=== PATIENT | female | born 1975 | race Caucasian/White ===

== ENCOUNTER 2017-07-29 05:10 | Day surgery (SDC) | payer BC, OTHER ==
[~2017-07-29] VITALS: Ht 165.1 cm; Wt 79.4 kg
--- NOTE | ~2017-07-29 | O ---
[facility] [place] [address] OPERATIVE REPORT Name: ILANA ASHLEY Room #: 150-3 [facility]..#: [id number] Admission: 07/29/17 Attend Phys: Jj Salomon MD Discharge: Date of : 75 Report #: [id number] THIS REPORT FOR: //name// CC: Fran Salomon DATE OF SERVICE: 07/29/2017 PREOPERATIVE DIAGNOSIS: Left calf hematoma. POSTOPERATIVE DIAGNOSIS: Left calf hematoma. PROCEDURE: Evacuation of left calf hematoma. SURGEON: Jj Salomon MD. ENTRY LEVEL CHEMIST: Saniya Waller PA-C. INDICATIONS FOR ENTRY LEVEL CHEMIST: Throughout the case, retraction and manipulation of the leg was required and this was afforded to me by my physician executive administrative assistant. ANESTHESIA: LMA. COMPLICATIONS: None. SPECIMENS: None. TOURNIQUET TIME: 9 minutes. CONDITION UPON LEAVING THE OPERATING ROOM: Stable. INDICATIONS FOR PROCEDURE: The patient is a 42-year-old female who hit her leg about 4 weeks ago and had swelling and pain in her medial calf. She had an MRI scan showing her to have a hematoma deep to her medial head of her gastroc and after discussion with her and failure of conservative measures, she elected for evacuation of the left calf hematoma. DESCRIPTION OF PROCEDURE: Risks, benefits, alternatives, complications were discussed in detail with the patient including but not limited to risk of anesthesia, risk of damage to nerves, arteries, blood vessels, risk for infection, bleeding, risk for continued calf pain, reaccumulation of hematoma and need for reoperation. Informed consent was obtained from the patient. Left calf was appropriately marked in the preoperative holding area. She was brought to the operating room and placed in supine position on operating room table. LMA anesthesia was induced without complication. Tourniquet was placed on the left thigh. Left lower extremity was prepped and draped in normal sterile [address] [address] OPERATIVE REPORT Name: ILANA ASHLEY Room #: 150-3 [facility]..#: [id number] Admission: 07/29/17 Attend Phys: Jj Salomon MD Discharge: Date of : 75 Report #: [id number] fashion. IV Ancef was given for preoperative antibiotics. Timeout was performed properly identifying the patient and procedure as well as the instrumentation. All in the operating room were in agreement. Left lower extremity was exsanguinated, tourniquet was inflated. Tourniquet time was 9 minutes. A longitudinal incision centered over the medial gastroc head at the level of the musculotendinous junction was made with a 10 blade through the skin. A saphenous vein was identified, dissected and retracted anteriorly. The fascia overlying the gastroc muscles then split longitudinally with a knife and the medial head of the gastroc musculature was split bluntly with Childs elevator. The deep fascia of the muscle was then split longitudinally and upon entering the deeper posterior compartment, there was noted to be a liquefying hematoma that was easily drained and evacuated with a suction. This was thoroughly irrigated with normal saline. The tourniquet was deflated. Hemostasis was obtained with Bovie cautery. The deep fascia was closed with 0 Vicryl, skin was closed with 2-0 Vicryl and 3-0 Monocryl. Steri-Strips, Adaptic, 4 x 4, Webril, Leo wrap and a Cam walker were applied. The patient tolerated this procedure well and went to recovery room under care of anesthesia postoperatively. By: [id number] Jj Salomon MD /gladys
[~2017-07-29 05:10] MED LIST: APAP500 PO; CLONAZEPAM 1 MG1 M1 PO; DIFLUCAN150 MG PO; FLEXERIL; FLEXERIL PO; HYDROCODON-ACE1 EAC7 PO; HYDROCODONE-AP1 EACH PO; IBUPROFEN 600600 M1 PO; LEVAQUIN 500 M500 M2 PO; LINZESS145 MCG PO; MIDODRINE HCL 55 M1; NAPROSYN500 MG PO; NEURONTIN 300300 M1 PO; NORCO 10-325 T1 EACH; NORCO 5-325 TA1 EACH PO; ONDANSETRON HCL4 M2 PO; PERCOCET 5-3251 EACH PO; PREDNISONE 20 M20 M1 PO; PREDNISONE 20 M20 MG PO; PROCTOFOAM-HC 110 GM RC; PROZAC 20 MG20 M1 PO; REMERON15 M1; ROBAFEN AC SYR120 ML PO; ROBAXIN500 MG; ROBAXIN500 MG PO; SAVELLA50 MG PO; TRAZODONE HCL100 MG PO; ULTRAM 50MG TAB50 MG PO; ZOFRAN ODT4 MG PO; ZOFRAN4 MG; ZPAK PO
[2017-07-29 13:40] VITALS: BP 113/78
[2017-07-29 14:58] VITALS: BP 113/78
== END 2017-07-29 16:00 | disposition home or self-care (01) ==
LOC: OR 05:10 → TBA 08:02 → OR 09:01
DX: S80.12XA Contusion of left lower leg, initial encounter (principal); G47.33 Obstructive sleep apnea (adult) (pediatric); F32.89 Other specified depressive episodes; F41.8 Other specified anxiety disorders; F17.210 Nicotine dependence, cigarettes, uncomplicated; Z90.710 Acquired absence of both cervix and uterus; Z98.890 Other specified postprocedural states; Z88.1 Allergy status to other antibiotic agents; X58.XXXA Exposure to other specified factors, initial encounter; Y93.89 Activity, other specified; Y92.89 Other specified places as the place of occurrence of the external cause; Y99.8 Other external cause status
CPT/HCPCS: 50010; 50101; 50386; 56524; 56527; 56528; 57091; 62110; 62900; 70005

== ENCOUNTER 2018-08-02 20:45 | Emergency (ER) | payer BC, OTHER ==
[~2018-08-02] VITALS: Ht 165.1 cm; Wt 69.0 kg
[2018-08-02] MEDS ORDERED: MIDODRINE HCL 55 M1 PO (21:01)
[2018-08-02] MEDS ORDERED: TOPROL XL25 MG PO (21:02)
[2018-08-02] MEDS ORDERED: PREDNISONE 20 M20 MG PO (21:29)
[2018-08-02] MEDS ORDERED: VENTOLIN HFA 1818 GM INH (21:29)
[2018-08-02] MEDS ORDERED: MOBIC7.5 MG PO ×2 (21:35→21:41)
[2018-08-02] MEDS ORDERED: TESSALON PERLE100 MG PO ×2 (21:39→21:42)
== END 2018-08-02 22:00 | disposition home or self-care (01) ==
LOC: ER 20:45
DX: J40 Bronchitis, not specified as acute or chronic (principal); J04.0 Acute laryngitis; F17.210 Nicotine dependence, cigarettes, uncomplicated; G47.30 Sleep apnea, unspecified; F32.9 Major depressive disorder, single episode, unspecified; K58.9 Irritable bowel syndrome, unspecified; Z91.048 Other nonmedicinal substance allergy status; Z88.1 Allergy status to other antibiotic agents; Z90.710 Acquired absence of both cervix and uterus; Z90.49 Acquired absence of other specified parts of digestive tract; Z90.722 Acquired absence of ovaries, bilateral

== ENCOUNTER 2018-08-05 19:06 | Emergency (ER) | payer BC, OTHER ==
[~2018-08-05] VITALS: Ht 165.1 cm; Wt 69.4 kg
--- NOTE | ~2018-08-05 | EKG ---
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
[~2018-08-05 19:06] MED LIST changes: +MIDODRINE HCL 55 M1 PO; +MOBIC7.5 MG PO; +TESSALON PERLE100 MG PO; +TOPROL XL25 MG PO; +VENTOLIN HFA 1818 GM INH
[2018-08-05 19:21] LABS: ABSOLUTE NEUTROPHILS 12.4 thou/uL (1.4-8.2); BASOPHILS 0.6 % (0.0-2.0); EOSINOPHILS 0.1 % (0.0-3.0); HEMATOCRIT 42.4 % (37.0-47.0); HEMOGLOBIN 14.3 gm/dL (12.0-15.0); LYMPHOCYTES 17.4 % (24.0-44.0); MCH 30.6 pg (26.0-34.0); MCHC 33.7 g/dL (28.0-37.0); MCV 90.9 fL (80.0-100.0); MONOCYTES 6.1 % (1.0-8.0); PLATELET COUNT 253 thou/uL (150-400); POLYS 75.8 % (36.0-66.0); RBC 4.67 mil/uL (4.20-5.00); RDW 13.7 % (10.5-14.5); WBC 16.4 thou/uL (4.0-11.0)
[2018-08-05 19:29] LABS: ANION GAP 13 mmol/L (7-16); BUN 16 mg/dL (7-18); CALCIUM 9.5 mg/dL (8.5-10.1); CHLORIDE 106 mmol/L (98-107); CO2 24 mmol/L (21-32); GLUCOSE 110 mg/dL (74-106); POTASSIUM 3.8 mmol/L (3.5-5.1); SODIUM 143 mmol/L (136-145)
[2018-08-05 19:38] LABS: TROPONIN-I <0.06 ng/mL (<0.06)
== END 2018-08-05 23:22 | disposition home or self-care (01) ==
LOC: ER 19:06
PROVIDERS: Emergency Medicine
DX: J06.9 Acute upper respiratory infection, unspecified (principal); M79.622 Pain in left upper arm; F17.210 Nicotine dependence, cigarettes, uncomplicated; I95.1 Orthostatic hypotension; G47.30 Sleep apnea, unspecified; F32.9 Major depressive disorder, single episode, unspecified; K58.9 Irritable bowel syndrome, unspecified; Z90.49 Acquired absence of other specified parts of digestive tract; Z91.048 Other nonmedicinal substance allergy status; Z88.1 Allergy status to other antibiotic agents; Z90.710 Acquired absence of both cervix and uterus; Z90.722 Acquired absence of ovaries, bilateral

== ENCOUNTER 2019-02-17 21:15 | Emergency (ER) | payer BC, OTHER ==
[~2019-02-17] VITALS: Ht 165.1 cm; Wt 63.5 kg
[2019-02-17 21:41] LABS: URINE BILIRUBIN NEGATIVE (Negative); URINE BLOOD NEGATIVE (Negative); URINE CLARITY CLEAR; URINE COLOR YELLOW; URINE GLUCOSE-RANDOM* NEGATIVE (Negative); URINE KETONES NEGATIVE (Negative); URINE LEUKOCYTES-REFLEX NEGATIVE (Negative); URINE NITRITE-REFLEX NEGATIVE (Negative); URINE PROTEIN (DIPSTICK) NEGATIVE (Negative); URINE UROBILINOGEN 0.2 E.U./dl (0.2-1.0)
[2019-02-17 21:54] LABS: ABSOLUTE NEUTROPHILS 3.4 thou/uL (1.4-8.2); BASOPHILS 0.8 % (0.0-2.0); EOSINOPHILS 1.1 % (0.0-3.0); HEMATOCRIT 37.8 % (37.0-47.0); HEMOGLOBIN 12.9 gm/dL (12.0-15.0); MCH 30.5 pg (26.0-34.0); MCHC 34.1 g/dL (28.0-37.0); MCV 89.2 fL (80.0-100.0); PLATELET COUNT 212 thou/uL (150-400); POLYS 47.1 % (36.0-66.0); RBC 4.24 mil/uL (4.20-5.00); RDW 13.8 % (10.5-14.5); WBC 7.3 thou/uL (4.0-11.0)
[2019-02-17 22:04] LABS: CALCIUM 8.5 mg/dL (8.5-10.1); POTASSIUM 3.5 mmol/L (3.5-5.1)
[2019-02-17 22:11] LABS: ALBUMIN 3.6 g/dL (3.4-5.0); TOTAL BILIRUBIN 0.4 mg/dL (<0.1-1.0); TOTAL PROTEIN 5.9 g/dL (6.4-8.2)
[2019-02-18] MEDS ORDERED: PROTONIX40 MG PO (00:21)
[2019-02-18 00:40] VITALS: BP 100/61
== END 2019-02-18 00:49 | disposition home or self-care (01) ==
LOC: ER 21:15
PROVIDERS: Emergency Medicine
DX: R10.11 Right upper quadrant pain (principal); R10.13 Epigastric pain; F17.210 Nicotine dependence, cigarettes, uncomplicated; G47.30 Sleep apnea, unspecified; F32.9 Major depressive disorder, single episode, unspecified; K58.9 Irritable bowel syndrome, unspecified; Z91.048 Other nonmedicinal substance allergy status; Z88.1 Allergy status to other antibiotic agents; Z90.710 Acquired absence of both cervix and uterus; Z90.722 Acquired absence of ovaries, bilateral; Z90.49 Acquired absence of other specified parts of digestive tract

== ENCOUNTER 2020-04-27 09:24 | Emergency (ER) | payer BC, OTHER ==
[~2020-04-27] VITALS: Ht 165.1 cm; Wt 59.0 kg
[~2020-04-27 09:24] MED LIST changes: +PROTONIX40 MG PO
[2020-04-27] MEDS ORDERED: PREDNISONE 20 M20 MG PO (12:18)
[2020-04-27 12:27] VITALS: BP 98/49
== END 2020-04-27 12:27 | disposition home or self-care (01) ==
LOC: ER 09:24
DX: T63.441A Toxic effect of venom of bees, accidental (unintentional), initial encounter (principal); R13.10 Dysphagia, unspecified; R26.2 Difficulty in walking, not elsewhere classified; F32.9 Major depressive disorder, single episode, unspecified; M62.82 Rhabdomyolysis; F17.210 Nicotine dependence, cigarettes, uncomplicated; Z90.711 Acquired absence of uterus with remaining cervical stump; Z90.49 Acquired absence of other specified parts of digestive tract; Z79.899 Other long term (current) drug therapy; Z91.048 Other nonmedicinal substance allergy status; Z91.030 Bee allergy status; Z88.1 Allergy status to other antibiotic agents; Y92.89 Other specified places as the place of occurrence of the external cause

== ENCOUNTER 2020-12-13 18:22 | Emergency (ER) | payer BC, OTHER ==
[~2020-12-13] VITALS: Ht 165.1 cm; Wt 59.0 kg
[2020-12-13 19:22] LABS: ABSOLUTE NEUTROPHILS 5.6 thou/uL (1.4-8.2); BASOPHILS 0.4 % (0.0-2.0); EOSINOPHILS 1.4 % (0.0-3.0); HEMATOCRIT 39.4 % (37.0-47.0); LYMPHOCYTES 27.3 % (24.0-44.0); MCH 30.2 pg (26.0-34.0); MCV 91.5 fL (80.0-100.0); MONOCYTES 5.4 % (1.0-8.0); PLATELET COUNT 254 thou/uL (150-400); POLYS 65.5 % (36.0-66.0); RBC 4.31 mil/uL (4.20-5.00); RDW 13.4 % (10.5-14.5); WBC 8.6 thou/uL (4.0-11.0)
[2020-12-13 19:33] LABS: ANION GAP 9 mmol/L (7-16); BUN 19 mg/dL (7-18); CALCIUM 9.1 mg/dL (8.5-10.1); CHLORIDE 104 mmol/L (98-107); CO2 25 mmol/L (21-32); CREATININE 1.2 mg/dL (0.6-1.0); GLUCOSE 93 mg/dL (74-106); POTASSIUM 4.2 mmol/L (3.5-5.1); SODIUM 138 mmol/L (136-145)
[2020-12-13] MEDS ORDERED: PROZAC20 M1 PO (19:33)
[2020-12-13 19:48] LABS: TROPONIN-I <0.06 ng/mL (<0.06)
[2020-12-13 23:23] VITALS: BP 94/48
--- NOTE | 2020-12-14 07:01 | EKG ---
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1975 Requested By: Sunil Rueda Order Number: [id number] MD: Wilman Gerard Measurements Intervals [place] Rate: 75 P: 68 CO: 164 QRS: 78 QRSD: 100 T: 43 QT: 397 QTc: 444 Interpretive Statements Sinus rhythm Probable left atrial enlargement Small Q's ingerior leads Compared to ECG 08/05/2018 19:08:46 No significant changes Electronically Signed On 12-14-2020 7:01:09 [employer] by Wilman Gerard [email or web address] <ELECTRONICALLY SIGNED> By: Wilman Gerard MD, [facility] 12/14/20 0701 [id number] 33 Wilman Gerard MD, FACC /EPI
== END 2020-12-13 23:30 | disposition home or self-care (01) ==
LOC: ER 18:22
PROVIDERS: Nurse Practitioner
DX: R07.89 Other chest pain (principal); F17.210 Nicotine dependence, cigarettes, uncomplicated; Z90.710 Acquired absence of both cervix and uterus; Z79.899 Other long term (current) drug therapy; Z91.048 Other nonmedicinal substance allergy status; Z91.030 Bee allergy status; Z88.8 Allergy status to other drugs, medicaments and biological substances; Z20.828 Contact with and (suspected) exposure to other viral communicable diseases

== ENCOUNTER 2021-06-30 19:06 | Emergency (ER) | payer BC, OTHER ==
[~2021-06-30] VITALS: Ht 165.1 cm; Wt 63.5 kg
[~2021-06-30 19:06] MED LIST changes: +PROZAC20 M1 PO
[2021-06-30] MEDS ORDERED: ZOFRAN ODT4 MG PO (20:25)
[2021-06-30 20:47] VITALS: BP 112/49
== END 2021-06-30 20:48 | disposition home or self-care (01) ==
LOC: ER 19:06
PROVIDERS: Nurse Practitioner Family
DX: J06.9 Acute upper respiratory infection, unspecified (principal); Z20.822 Contact with and (suspected) exposure to COVID-19; F32.9 Major depressive disorder, single episode, unspecified; F17.210 Nicotine dependence, cigarettes, uncomplicated; Z90.722 Acquired absence of ovaries, bilateral; Z90.89 Acquired absence of other organs; Z90.710 Acquired absence of both cervix and uterus; Z79.891 Long term (current) use of opiate analgesic; Z79.1 Long term (current) use of non-steroidal anti-inflammatories (NSAID); Z79.899 Other long term (current) drug therapy; Z88.8 Allergy status to other drugs, medicaments and biological substances; Z88.6 Allergy status to analgesic agent; Z91.030 Bee allergy status; Z91.040 Latex allergy status

== ENCOUNTER 2021-08-17 18:50 | Emergency (ER) | payer OTHER ==
[~2021-08-17] VITALS: Ht 165.1 cm; Wt 59.0 kg
[2021-08-17] MEDS ORDERED: IBUPROFEN 600600 M1 PO (20:12)
[2021-08-17] MEDS ORDERED: CYCLOBENZAPRINE5 MG PO (20:12)
[2021-08-17 20:27] VITALS: BP 101/60
== END 2021-08-17 20:27 | disposition home or self-care (01) ==
LOC: ER 18:50
DX: S39.012A Strain of muscle, fascia and tendon of lower back, initial encounter (principal); F32.9 Major depressive disorder, single episode, unspecified; F17.210 Nicotine dependence, cigarettes, uncomplicated; Z90.710 Acquired absence of both cervix and uterus; Z98.890 Other specified postprocedural states; Z90.89 Acquired absence of other organs; Z90.49 Acquired absence of other specified parts of digestive tract; Z79.899 Other long term (current) drug therapy; Z88.1 Allergy status to other antibiotic agents; Z91.030 Bee allergy status; Z91.048 Other nonmedicinal substance allergy status; W22.8XXA Striking against or struck by other objects, initial encounter; Y93.89 Activity, other specified; Y92.512 Supermarket, store or market as the place of occurrence of the external cause; Y99.8 Other external cause status